=== PATIENT | female | born 1960 | race Caucasian/White ===

== ENCOUNTER → 2017-05-30 | Outpatient (CLI) | payer BC ==
--- NOTE | 2017-05-30 08:32 | DIAGNOSTIC IMAGING REPORT ---
MRI LUMBAR SPINE W/O CONTRAST CLINICAL HISTORY: Back pain radiating to the legs TECHNIQUE: Sagittal and axial T1, T2 and STIR images were obtained. COMPARISON STUDY: No previous studies for comparison. OBSERVATIONS: The vertebral bodies and posterior elements appear intact. There is no abnormal bony signal present to suggest a marrow replacement process. L1-2: No disc protrusions or extrusions. No evidence of spinal canal or neural foraminal compromise. L2-3: No disc protrusions or extrusions. No evidence of spinal canal or neural foraminal compromise. L3-4: There is a right lateral disc bulge. There is no significant spinal or foraminal stenosis L4-5: There is a mild circumferential disc bulge. There is no significant spinal or foraminal stenosis. There is mild facet joint arthropathy. L5-S1: No disc protrusions or extrusions. No evidence of spinal canal or neural foraminal compromise. The conus medullaris and cauda equina appear normal. IMPRESSION: Mild degenerative change. No focal herniations identified. No evidence of significant spinal or foraminal stenosis. Electronically signed by: Monroe Wright M.D. 05/30/2017 8:31 AM Dictated Date/Time: 05/30/2017 8:20 AM
== END | disposition home or self-care (01) ==
LOC: C.MRI 07:13
PROVIDERS: ATTEND Chiropractor
DX: M54.5 Low back pain (principal)